=== PATIENT | male | born 1960 | race African-American/Black ===

== ENCOUNTER 2018-10-27 20:23 | Emergency (ER) | payer OTHER ==
[~2018-10-27] VITALS: Ht 185.4 cm; Wt 79.4 kg
[2018-10-27 21:10] LABS: HEMATOCRIT 38.3 % (42.0-52.0); HEMOGLOBIN 12.6 gm/dL (14.0-18.0); MCH 28.3 pg (26.0-34.0); MCV 85.8 fL (80.0-100.0); RBC 4.47 mil/uL (4.50-6.00); RDW 13.8 % (10.5-14.5); WBC 6.3 thou/uL (4.0-11.0)
[2018-10-27 21:14] LABS: CALCIUM 8.9 mg/dL (8.5-10.1); POTASSIUM 3.9 mmol/L (3.5-5.1)
[2018-10-27] MEDS ORDERED: NORFLEX100 MG PO (23:03)
[2018-10-27] MEDS ORDERED: MOBIC15 MG PO (23:03)
[2018-10-27 23:35] VITALS: BP 174/99
== END 2018-10-27 23:36 | disposition home or self-care (01) ==
LOC: ER 20:23
PROVIDERS: Emergency Medicine
DX: S09.8XXA Other specified injuries of head, initial encounter (principal); M25.521 Pain in right elbow; V89.2XXA Person injured in unspecified motor-vehicle accident, traffic, initial encounter; Y92.481 Parking lot as the place of occurrence of the external cause; Y93.89 Activity, other specified; Y99.8 Other external cause status